=== PATIENT | female | born 1960 | race Caucasian/White ===

== ENCOUNTER 2019-11-14 10:20 | Outpatient (CLI) | payer OTHER, SELFPAY ==
--- NOTE | 2019-11-14 10:44 | MM_ITS ---
WS: [id number] BILATERAL DIGITAL SCREENING MAMMOGRAPHY WITH CAD CLINICAL INFORMATION: SCREENING HISTORY: Screening mammogram. No current complaints. COMPARISON: TECHNIQUE: Bilateral CC and MLO views. FINDINGS: Scattered fibroglandular densities bilaterally. A few tiny stable calcifications left breast. No susp icious focal mass, asymmetry, calcifications, or architectural distortion. No evidence of malignancy. MM/[place] [id number] IMPRESSION: BI-RADS: 2-Benign FOLLOW UP: 1 Year Follow-up Recommend return to annual screening mammography.
== END 2019-11-14 10:21 | disposition home or self-care (01) ==
LOC: RADSHAW 10:24
PROVIDERS: Family Provider Internal Medicine; PCP Family Medicine; Visit Provider Family Medicine
DX: Z12.31 Encounter for screening mammogram for malignant neoplasm of breast (principal)
CPT/HCPCS: 77067

== ENCOUNTER → 2023-01-01 10:41 | Outpatient (BNVA) | payer OTHER, SELFPAY | PROVIDERS: Family Provider Internal Medicine; PCP Family Medicine; Visit Provider Student in an Organized Health Care Education/Training Program | DX: M70.61 Trochanteric bursitis, right hip (principal) | CPT/HCPCS: 20610; 73502; 99203 ==

== ENCOUNTER → 2023-01-19 10:01 | Outpatient (BNVA) | payer OTHER, SELFPAY | PROVIDERS: Family Provider Internal Medicine; PCP Family Medicine; Visit Provider Physician Assistant | DX: M43.17 Spondylolisthesis, lumbosacral region (principal); M48.062 Spinal stenosis, lumbar region with neurogenic claudication; R20.2 Paresthesia of skin | CPT/HCPCS: 72110; 99203 ==

== ENCOUNTER → 2023-01-27 09:34 | Outpatient (BNVA) | payer MEDICARE, OTHER, SELFPAY | PROVIDERS: Family Provider Internal Medicine; PCP Family Medicine; Visit Provider Family Medicine | DX: Z01.818 Encounter for other preprocedural examination (principal); E11.9 Type 2 diabetes mellitus without complications | CPT/HCPCS: 80048; 83036; 85025 ==

== ENCOUNTER 2023-01-29 13:09 | Outpatient (CLI) | payer OTHER, SELFPAY ==
--- NOTE | 2023-01-29 13:30 | USCV_ITS ---
Rula Delong Age: 62 Gender: F : 1960 Exam Date: 01/29/2023 13:23 Ordering Phys: Lena Anthony MD ([email or web address]) Technologist: PAKO Exam Location: [facility] Indication: CHF BP: 128 / 72 HR: 69 Rhythm: Sinus Technical Quality: Adequate MEASUREMENTS (Male / Female) Normal Values 2D ECHO LV Diastolic Diameter PLAX 3.6 cm 4.2 - 5.9 / 3.9 - 5.3 cm LV Systolic Diameter PLAX 2.4 cm LV Chamber Size 4.5 cm IVS Diastolic Thickness 1.1 cm 0.6 - 1.0 / 0.6 - 0.9 cm IVS Systolic Thickness 1.1 cm LVPW Diastolic Thickness 1.2 cm 0.6 - 1.0 / 0.6 - 0.9 cm LVPW Systolic Thickness 1.3 cm RV Chamber Size 3.1 cm LVOT Diameter 2.0 cm LV Ejection Fraction 2D Teich 62.9 % LV Ejection Fraction MOD 2C 47.2 % LV Ejection Fraction 2C AL 46.1 % LA Diameter 3.7 cm LA Width 3.3 cm LA Height 3.5 cm RA Width 3.4 cm RA Height 3.8 cm Aorta at Sinotubular Diameter 2.6 cm M-MODE Aortic Annulus Diameter 3.0 cm LA Ao Ratio MM 1.3 MV E Point Septal Separation 0.8 cm DOPPLER AV Peak Velocity 173.0 cm/s LVOT Peak Velocity 121.0 cm/s AV Area Cont Eq vti 2.1 cm squared AV Area Cont Eq pk 2.2 cm squared MV Peak Velocity 167.0 cm/s MV Area PHT 2.0 cm squared Mitral E to A Ratio 0.9 MV E' Velocity 66.0 cm/s Mitral E to MV E' Ratio 21.1 Mitral E to LV E' Lateral Ratio 24.8 Mitral E to LV E' Septal Ratio 18.4 TR Peak Velocity 199.2 cm/s TR Peak Gradient 15.9 mmHg TR Mean Velocity 155.1 cm/s TR Mean Gradient 10.3 mmHg TR Velocity Time Integral 50.4 cm TV Peak E Velocity 41.0 cm/s Right Atrial Pressure 5.0 mmHg Pulmonary Artery Systolic Pressu 20.9 mmHg RV Acceleration Time 0.2 s RV Ejection Time 0.4 s RV AcT/ET 0.4 FINDINGS Left Ventricle Normal left ventricular size and systolic function, EF 55 %. Mild left ventricular hypertrophy. Grade I/IV diastolic dysfunction (abnormal relaxation filling pattern), normal to mildly elevated filling pressures. Right Ventricle The right ventricle is normal in size and function. Right Atrium The right atrium is normal in size. Left Atrium Mildly increased left atrial size. Mitral Valve Thickened mitral valve. Moderate mitral annular calcification. Mild mitral valve regurgitation. Aortic Valve Thickened aortic valve. Tricuspid Valve Trace tricuspid valve regurgitation. Pulmonic Valve Pulmonic valve not well visualized. Pericardium Normal pericardium without effusion. Aorta Normal ascending aorta dimension. IVC Normal inferior vena cava. CONCLUSIONS Normal left ventricular size and systolic function, EF 55 %. Mild left ventricular hypertrophy. Grade I/IV diastolic dysfunction (abnormal relaxation filling pattern), normal to mildly elevated filling pressures. Mildly increased left atrial size. Thickened mitral valve. Moderate mitral annular calcification. Mild mitral valve regurgitation. Thickened aortic valve. Trace tricuspid valve regurgitation. Estimated pulmonary artery peak systolic pressure 29 mmHg There is no pericardial effusion. There are no intracardiac masses. No similar previous studies are available for comparison Dr Lena Anthony MD FAC (Electronically Signed) Final Date: 05 Feb 2023 07:20 S
== END 2023-01-29 13:10 | disposition home or self-care (01) ==
LOC: RAD 13:12
PROVIDERS: PCP Internal Medicine; Visit Provider Internal Medicine Cardiovascular Disease
DX: I50.9 Heart failure, unspecified (principal); R06.09 Other forms of dyspnea; I05.9 Rheumatic mitral valve disease, unspecified; I35.8 Other nonrheumatic aortic valve disorders
CPT/HCPCS: 93306; 99205

== ENCOUNTER 2023-02-05 09:54 | Outpatient (CLI) | payer OTHER, SELFPAY ==
--- NOTE | 2023-02-05 | ECG_ITS ---
[facility] Test Date: 2023-02-05 Pat Name: Rula Delong Department: Room: Gender: Female Spring Inspector: : 1960 Requested By: Lena Anthony Order Number: [id number] Loyd MD: Lena Anthony M.D. Interpretive Statements NAME OF STUDY: LEXISCAN SESTAMIBI STRESS TEST INDICATION: CHF, PROCEDURE: At the baseline, the EKG revealed normal sinus rhythm with poor R wave progression. Nonspecific ST changes. The baseline heart was 64 bpm with a blood pressue of 154/73 mm of Hg Lexiscan was infused over a period of 20 seconds. A total of 0.4 milligrams of Lexiscan was infused. The stress phase was continued for a total of 5 minutes. Heart rate at the end of the stress phase was 72 bpm with a blood pressure 129/63 mm of Hg. The EKG at the peak infusion revealed no significant changes. Sestamibi was injected 20 seconds after the Lexiscan infusion. Heart rate at the end of the recovery phase was 73 bpm with a blood pressure of 131/66 mm of Hg. CONCLUSION: 1. No significant EKG changes with the LexiScan infusion 2. No LexiScan induced chest pain or cardiac arrhythmia 3. Normal blood pressure and heart rate response 4. Sestamibi/sestamibi perfusion scan pending; see separate report. Electronically Signed On 02-05-2023 20:24:44 CDT by Lena Anthony M.D. [id number]
[2023-02-05 10:09] VITALS: BMI 37.8
--- NOTE | 2023-02-05 10:11 | NMCV_ITS ---
NM camilo perf SPECT r/s* [id number] Rula Delong Age: 62 Gender: F : 1960 Exam Date: 02/05/2023 10:41 Ordering Phys: Lena Anthony MD ([email or web address]) Technologist: MANDEEP Holt Exam Location: [facility] Indications: Chest Pain STRESS TEST [facility] IMAGE PROTOCOL Rest/Stress 1 Lexiscan Day Radiopharmaceutical Dose (mCi) Administration Site Administered by Rest: Tc-99m 11.0 IV Hemal Phillips, ASSEMBLY OPERATOR Sestamibi Stress:Tc-99m 33.0 IV Hemal Phillips, ASSEMBLY OPERATOR Sestamibi Rest: 05-Feb-2023 60 Discovery 630 Stress: 05-Feb-2023 30 Discovery 630 0.4mg Lexiscan. Images obtained in supine and prone position. SPECT RESULTS Technical Quality: Excellent Raw Data Analysis: Normal, Breast attenuation Image Corrections: No attenuation or motion correction applied Summed Stress Score: 0 Summed Rest Score: 1 Summed Difference Score: 0 PERFUSION FINDINGS Fairly uniform myocardial tracer uptake with no significant perfusion normalities FUNCTIONAL RESULTS (calculated via Gated SPECT) Stress Image LV EF (%): 69 Stress EDV (mL):97 TID: 0.9 Stress ESV (mL):30 FUNCTIONAL FINDINGS: Segmental wall motion analysis revealing no gross wall motion abnormalities IMPRESSIONS 1. Unremarkable Myocardial perfusion imaging. 2. Normal LV ejection fraction of 69%. 3. LV wall motion analysis revealing no gross wall motion abnormalities. 4. Normal LV volume Low probability for coronary ischemia, based on the above findings. No similar previous studies are available for comparison Dr Lena Anthony MD FACC (Electronically Signed) Final Date: 05 Feb 2023 13:54 S
[2023-02-05] MEDS: regadenoson 0.4 Mg/5 ml Syringe IVP (11:30)
[2023-02-05 13:06] VITALS: BP 131/66; PULSE 74
== END 2023-02-05 09:55 | disposition home or self-care (01) ==
LOC: CDL 09:55
PROVIDERS: PCP Internal Medicine; Visit Provider Internal Medicine Cardiovascular Disease
DX: R07.9 Chest pain, unspecified (principal)
CPT/HCPCS: 36415; 78452; 93017; 96374; A9500; J2785

== ENCOUNTER 2023-02-17 10:20 | Inpatient (IN) | payer OTHER, SELFPAY ==
[2023-02-10 10:12] VITALS: BMI 37.8
[2023-02-10 10:51] LABS: Anion Gap 13.8 (5-19); Blood Urea Nitrogen 40 mg/dL (8-23); Calcium 8.8 mg/dL (8.5-10.5); Carbon Dioxide 27 mmol/L (22-29); Chloride 105 mmol/L (98-107); Glomerular Filtration Rate 55.6 mL/min (90-130); Glucose 206 mg/dL (65-115); Osmolality Calculated 308 mOsm/kg (285-295); Potassium 4.8 mmol/L (3.5-5.1); Sodium 141 mmol/L (136-145)
[2023-02-10 10:53] LABS: Creatinine Clr Calc Pharmacy 64.7573
--- NOTE | 2023-02-10 15:19 | ANES.PREANE2 ---
Pre-Anesthetic Assessment Height/Weight: Height 1.57 m Weight 93.894 kg Operation Date: 02/17/23 07:00 Proposed Procedures p Spondylolisthesis at L5-S1 level : 29178,77173,26438,19404,M43.17(Not Applicable) - Vidal Alvarado DO Familial anesthetic complications: none Was Beta Red taken within 24 hours: N/A Was Clonidine taken within 24 hours: N/A Social No alcohol and No tobacco Exam alert, oriented x 3, clear to auscultation bilaterally and regular rate & rhythm Airway Submandibular: within normal limits Cervical ROM: within normal limits Mallampati: Class II Dentition: false Pulmonary Sleep Apnea CV/HEM Arrythmia and Hypertension Metabolic Diabetes Mellitus, Hyperlipidemia and Morbid Obesity Musc/skel Lower Back Pain and Osteoarthritis/DJD Neuropsych Anxiety, Cerebrovascular Accident and Depression Anesthetic Plan ASA status: 3 Anesthesia: General Medications/Allergies Home Medications Medication Instructions Recorded Confirmed Last Taken Type albuterol 90 mcg/actuation aerosol 90 mcg inhalation QID PRN 01/07/23 02/10/23 02/10/23 History inhaler Shortness Of Breath amlodipine 10 mg tablet 10 mg PO DAILY 01/07/23 02/10/23 02/10/23 History aspirin 81 mg tablet,delayed 81 mg PO DAILY 01/07/23 02/10/23 02/10/23 History release (Adult Low Dose Aspirin) bupropion HCl 150 mg 24 hr tablet, 150 mg PO QAM 01/07/23 02/10/23 02/10/23 History extended release capsaicin 0.075 % topical cream 1 applic topical QPM 01/07/23 02/10/23 02/10/23 History cholecalciferol (vitamin D3) 25 25 mcg PO DAILY 01/07/23 02/10/23 02/10/23 History mcg (1,000 unit) capsule cyanocobalamin (vitamin B-12) 1,000 mcg PO DAILY 01/07/23 02/10/23 02/10/23 History 1,000 mcg capsule furosemide 20 mg tablet 20 mg PO DAILY 01/07/23 02/10/23 02/10/23 History hydrochlorothiazide 25 mg tablet 25 mg PO DAILY 01/07/23 02/10/23 02/10/23 History meloxicam 15 mg tablet 15 mg PO DAILY 01/07/23 02/10/2323 History pregabalin 75 mg capsule 75 mg PO BID 01/07/23 02/10/23 02/10/23 History atenolol 100 mg tablet 100 mg PO DAILY 01/27/23 02/10/23 02/10/23 History insulin regular hum U-500 conc 500 125 unit SUBCUT TID 01/27/23 02/10/23 02/10/23 History unit/mL subcutaneous soln (Humulin R U-500 (Concentrated) Insulin) lisinopril 40 mg tablet 40 mg PO DAILY 01/27/23 02/10/23 02/10/23 History rosuvastatin 40 mg tablet 20 mg PO DAILY 01/27/23 02/10/23 02/10/23 History semaglutide 0.25 mg or 0.5 mg (2 0.25 mg SUBCUT DIRECTED 01/27/23 02/10/23 02/10/23 History mg/3 mL) subcutaneous pen injector (Ozempic) trazodone 50 mg tablet 25 mg PO QPM 01/27/23 02/10/23 02/10/23 History Allergies Allergy/AdvReac Type Severity Reaction Status Date / Time cephalexin [From Keflex] Allergy Unknown Unknown Verified 02/10/23 10:04 metformin Allergy Unknown Unknown Verified 02/10/23 10:04 [facility] Anesthesia Medical History CAD (coronary artery disease) CHF (congestive heart failure) Chronic low back pain CVA (cerebral vascular accident) Diabetes Multinodular goiter Paroxysmal supraventricular tachycardia Sleep apnea Venous insufficiency of right lower extremity Data Anesthesia 02/10/23 10:25 BMP 02/10/23 10:25 Sodium 141 Potassium 4.8 Chloride 105 Carbon Dioxide 27 BUN 40 H Creatinine 1.0 H Glucose 206 H Calcium 8.8 Cardiac Studies: Echocardiogram 01/29/23 Sestamibi Stress Test (Cardiology) 02/05/23
[2023-02-17] VITALS (18 sets, daily range): BP systolic 96–148; BP diastolic 54–83; PULSE 72–97; RESP 15–116; TEMP 36.4–37.1; O2SAT 90–99
--- NOTE | 2023-02-17 | XR_ITS ---
WS: [id number] Exam: XR lumbar spine 2-3V* [id number] Date/Time of Exam: 02/17/2023 12:00 AM Reason For Exam: L5-S1 instrumented fusion Intraoperative AP and lateral images of the lower lumbar spine depict posterior fusion with the rey a nd screw fixation at the L5-S1 level. A disc spacer is noted. The fusion appears to be in good alignm ent. XR/XR lumbar spine 2-3V* 46000 IMPRESSION: 1. Stable-appearing posterior fusion at L5-S1 as detailed above.
[2023-02-17] MEDS: sodium chloride 0.9% 1,000 ML 30 ML IV (06:25)
--- NOTE | 2023-02-17 06:31 | P.ANESUD_ITS ---
Pre-Anesthetic Update Pre-Anesthetic Assessment: Date of Surgery/Procedure: 02/17/23 Preop [place] gnosis: Grade 1 spinal listhesis L5-S1, lumbar stenosis Proposed Procedure: Operation Date: 02/17/23 07:00 Proposed Procedures p Spondylolisthesis at L5-S1 level : 60437,84287,96548,46502,M43.17(Not Applicable) - Vidal Alvarado, DO Any changes to Pre-Anesthetic Assessment?: No Last Intake: Intake Last Liquid Date 02/17/23 Last Liquid Time 05:00 Last Solid Date 02/16/23 Last Solid Time 20:00 Vitals: Temperature 97.6 F 02/17/23 06:10 Temperature Source Temporal Artery S can 02/17/23 06:10 Pulse Rate 72 02/17/23 06:10 Respiratory Rate 16 02/17/23 06:10 Blood Pressure 127/75 02/17/23 06:10 Blood Pressure Noreen n 92 02/17/23 06:10 Pulse Oximetry 97 02/17/23 06:10 Oxygen Delivery Me thod Room Air 02/17/23 06:10 Exam: Pre-Anes Outpt Exam: alert, oriented x 3, clear to auscultation bi laterally and regular rate & rhythm Cardiac Studies: Echocardiogram 01/29/23 Sestamibi Stress Test (Cardiology) 02/05
--- NOTE | 2023-02-17 06:39 | W.PM.OPSUD ---
Surgery/Procedure H&P Update DATE OF PROCEDURE: February 17, 2023 DATE H&P PERFORMED: 01/21/23 H&P UPDATE INFORMATION: I have reviewed H&P completed within last 30 days, I have examined patient prior to procedure and No changes to prior documentation PREOP DIAGNOSIS: Grade 1 spinal listhesis L5-S1, lumbar stenosis PLANNED PROCEDURE: Operation Date: 02/17/23 07:00 Proposed Procedures p Spondylolisthesis at L5-S1 level : 44342,78069,11462,07791,M43.17(Not Applicable) - Vidal Alvarado DO
[2023-02-17 06:56] LABS: Anion Gap 15.5 (5-19); Blood Urea Nitrogen 43 mg/dL (8-23); Calcium 9.4 mg/dL (8.5-10.5); Carbon Dioxide 24 mmol/L (22-29); Chloride 107 mmol/L (98-107); Glomerular Filtration Rate 55.6 mL/min (90-130); Glucose 105 mg/dL (65-115); Osmolality Calculated 305 mOsm/kg (285-295); Potassium 4.5 mmol/L (3.5-5.1); Sodium 142 mmol/L (136-145)
[2023-02-17 07:03] LABS: Creatinine Clr Calc Pharmacy 64.7573
[2023-02-17] MEDS: clindamycin 900 MG/50 ML PREMIX 100 MG IV ×3 (07:05→22:16)
[2023-02-17] MEDS: vancomycin 1,000 MG SDV 1000 MG XX (08:02)
[2023-02-17] MEDS: heparin, porcine 1,000 unit/mL INJ 10 mL 10000 UNIT IRRIGATION (08:02)
[2023-02-17] MEDS: lidocaine-epi 1% 20 mL INJ INJECTION (08:02)
--- NOTE | 2023-02-17 10:01 | P.OP_ITS ---
Operative Report Date of procedure: February 17, 2023 Pre-op diagnosis: Preop Diagnosis Grade 1 spinal listhesis L5-S1, lumbar stenosis with neurogenic claudication Post-op diagnosis: same Procedure done: 1. L5/S1 Interbody fusion with posterolateral fusion 2. Instrumentation L5/S1 3. Cage at L5/S1 4. Laminectomy with facetectomies L5/S1 5. use of autograft from same incision 6. allograft 7. Bone marrow aspirate from right iliac crest 8. Use of computer navigation / stereotactic for spine Surgeon: Vidal Alvarado Wool Sampler: Renato Ruggiero Wool Sampler: The neurosurgical nurse, Renato Ruggiero, PAC was needed for his expertise under the microscope. He was important and necessary throughout the procedure to complete in a safe and timely manner. He assisted with patient positioning prepping and draping tissue retraction suctioning of the operative field protection of the dural sac and tissue closure Estimated blood loss (mL): 250 Procedure: 1. L5/S1 Interbody fusion with posterolateral fusion 2. Instrumentation L5/S1 3. Cage at L5/S1 4. Laminectomy with facetectomies L5/S1 5. use of autograft from same incision 6. allograft 7. Bone marrow aspirate from right iliac crest 8. Use of computer navigation / stereotactic for spine Patient is brought to the operative suite. After undergoing anesthesia, the patient had neuro monitoring attached. Patient was then placed in the prone po sition on the Wilmer table. All areas of impingement were well-padded. Patient was then prepped and draped in the normal sterile fashion. Skin incision was then made over the L L5-S1 space. Subperiosteal dissection was made out to the transverse processes of L5 and Sacral ala. Next attention was brought to getting bone marrow aspirate. The [employer] bone marrow aspirate kit was used to aspirate bone marrow aspirate from the right iliac crest. This was done by using the sharp probe to open up the bone. Aspiration was performed and then the blunt probe was then used to dissect down to through the bone tunnel. An aspirating well drawn back a millimeter approximately 20 cc of bone marrow aspirate was used. Admixed with the allograft and autograft bone that will be used. Next attention was brought to placing the fiducial for the computer navigation. This was done by pointy pins into the right iliac crest. These pins were then attached to a fiducial. C-arm was brought in and spun around the patient. Information from serum was then low in the computer in order to facilitate using computer navigation to place pedicle screws. The technique for placing the pedicle screws was to use a drill followed by the gearshift probe linked to computer navigation. Followed by the ball probe to feel the superior inferior medial lateral gruber of the pedicles. Then placement of the screws with computer navigation. Was done at each pedicle. Screws were placed at L5 bilaterally and S1 . Next attention was brought to performing the laminectomy ofL5. This was done using the high-speed bur Kerrisons and curettes. Once the lamina was removed and then attention was brought to performing a partial facetectomy on the contralateral side. This was done again using the high-speed bur curettes and Kerrisons. The ligamentum flavum was taken down bilaterally from L5 to S1. Attention was then brought to the facet on the ipsilateral side. The facet was taken down. The S1 nerve was decompressed as it passed around the S1 pedicle. The laminectomy was done for purposes of decompressing the nerve as well as placement of the cage. The L5 nerve was identified as it traversed through the L5/S1 foramen. The thecal sac was identified and retracted. The L5/S1 disc base was identified. Using a knife the disc base was opened. And then sequential chema were placed. The first shaver was a 6 and the last shaver was a 10. Using a pituitary and down going curette the endplates were scraped and disc material was removed from the space. Once adequate decompression of the disc base was felt to be had. Osteoamp sponge was packed into the anterior aspect of the disc base. Then a size 11 cage from Al was placed after packing osteoamp into the cage. While placing the cage the thecal sac and S1 nerve was protected. C arm was used to ensure that the cages placed in the appropriate position. Attention was then brought to attaching the rods to the screws placed in the L5 bilaterally and S1 bilaterally. Caps were torqued into position. Locking the construct in place. Wound was copiously irrigated and then attention was brought to decorticating the facets and transverse processes laterally. Bone that was taken down from the lamina was used along with osteoamp fibers and sponges were packed into the lateral gutters along the facet joints. This was done bi laterally. Wound was then closed in a layered fashion starting with the thoracolumbar fascia. 0-vicryl was used the sub cutaneous tissue was closed with 2-0 vicryl and skin with 4-0 monocryl. Glue was then used to seal the skin and a steril dressing was applied. Patient was then placed in the supine position. The endotracheal tube was removed and patient was transferred to the PACU in stable condition.
[2023-02-17] MEDS: lactated ringers 1,000 ML 90 ML IV ×2 (11:06→22:16)
[2023-02-17] MEDS: ketorolac 30 mg/mL INJ IVP (11:07)
--- NOTE | 2023-02-17 12:47 | ANE.PACU2 ---
Inpatient post-anesthesia follow up: Airway intact: Yes Vital signs: Temperature 98.2 F Pulse Rate 88 Respiratory Rate 16 Blood Pressure 120/70 Pulse Oximetry 97 Oxygen Delivery Me thod Nasal Cannula Oxygen Flow Rate 2 Fraction of Inspir ed Oxygen Hydration adequate: Yes Nausea and vomiting: No Pain level: 1 Mental status: Baseline
--- NOTE | 2023-02-17 13:06 | PC.NURSE ---
BG 300 PER DEXCOM
[2023-02-17] MEDS: insulin lispro 100 unit/1 mL SUBCUT ×3 (13:11→20:14)
[2023-02-17] MEDS: HYDROcodone-acetaminophen 5-325 mg Tablet PO ×3 (15:23→23:21)
--- NOTE | 2023-02-17 17:53 | PC.NURSE ---
BG 254 PER DEXCOM
[2023-02-17] MEDS: docusate sodium 100 mg Capsule PO (17:57)
[2023-02-17] MEDS: pregabalin 75 mg Capsule PO (17:57)
[2023-02-17] MEDS: ondansetron 2 mg/ML SDV 2 mL 4 MG IVP (18:01)
--- NOTE | 2023-02-17 18:15 | PC.NURSE ---
SHIFT SUMMARY PATIENT IS CURRENTLY RESTING IN BED. WORKED WITH PHYSICAL THERAPY. COMPLAINING OF DIFFICULTY SWALLOWING. THIS NURSE ASSESSED PATIENTS THROAT AND IT DOESN'T APPEAR TO BE SWOLLEN. I ENCOURAGED PATIENT TO INCREASE PO INTAKE. PATIENT HAS SWALLOWED PILLS WITHOUT DIFFICULTY, BUT ISN'T TAKING IN MUCH OTHERWISE. SURGICAL DRESSING HAS MINIMAL DRAINAGE. HEMOVAC OUTPUT 150ML. EXCELLENT URINE OUTPUT. PAIN WELL CONTROLLED.
--- NOTE | 2023-02-17 20:11 | PC.NURSE ---
Blood glucose currently 222 on Dexcom.
[2023-02-17 20:47] LABS: Glucose Point of Care 193 mg/dL (70-110)
[2023-02-18] MEDS: HYDROcodone-acetaminophen 5-325 mg Tablet PO ×2 (03:51→05:00)
[2023-02-18 04:00] VITALS: BP 105/67; PULSE 85; RESP 17; TEMP 36.5; O2SAT 95
[2023-02-18] MEDS: ketorolac 30 mg/mL INJ IVP (05:00)
[2023-02-18] MEDS: buPROPion XL (24 HR) 150 mg Tablet PO (05:00)
--- NOTE | 2023-02-18 06:21 | PC.NURSE ---
Blood glucose currently 177 on Dexacom.
[2023-02-18] MEDS: clindamycin 900 MG/50 ML PREMIX 100 MG IV (06:22)
--- NOTE | 2023-02-18 06:54 | PM.PN ---
Subjective Subjective: POD 1 Patient up in the chair this morning complains of back pain reports leg pain has improved. Shortness of breath, chest pain, headaches. Vitals/I&O/Wt Last Vital Signs Temp 97.7 F 02/18/23 04:00 Pulse 85 02/18/23 04:00 Resp 17 02/18/23 04:00 BP 105/67 02/18/23 04:00 Pulse Ox 95 02/18/23 04:00 O2 Del Method Room Air 02/18/23 04:00 O2 Flow Rate 2 02/17/23 11:50 02/17/23 02/17/23 02/18/23 14:59 22:59 06:59 Intake Total 150 / 150 1100 / 1250 1050 / 2300 Output Total 900 / 900 860 / 1760 1650 / 3410 Balance -750 / -750 240 / -510 -600 / -1110 Physical Exam Narrative: Patient presents alert and oriented x3 with a good general appearance normal mood and affect. Normal coordination normal stability. Mild tenderness around the incisional site with the incision appear to have slight bloody discharge around the drain. No signs of erythema or drainage. No signs of infection. Patient denies any fevers or chills. 4/5 motor strength both lower extremities with negative straight leg raise bilaterally. Calves are supple no medial thigh tenderness. Pulses are 2+ at the dorsalis pedis and posterior tibial region. Good capillary refill throughout normal sensation light touch both lower extremities. Urinary Catheter Management: Diaz: Cath Placed During This Visit: yes Reason for Continuing Indwelling Catheter: Perioperative Use in Selected Surgeries Urinary Catheter Date of Insertion: 02/17/23 Urinary Catheter Time of Insertion: 07:28 Data 02/17/23 06:18 A&P Assessment and plan (1) Status post lumbar spinal fusion: We will discontinue the Diaz catheter and Hemovac drain. Apply new Silverlon dressing. Encourage incentive spirometry for pulmonary toilet and take the incentive spirometer at home. No bending lifting or twisting encourage mobilization with walker. We will see her back in the office in 1 week's time for a wound check. Attestations Medical Necessity Statement*: Home later this morning following physical therapy. Coding Level of Care Code Acute Code for Chg Fwd Diagnoses Status post lumbar spinal fusion Z98.1
[2023-02-18 08:00] VITALS: BP 103/68; PULSE 78; RESP 16; TEMP 36.4; O2SAT 98
[2023-02-18] MEDS: cholecalciferol (vitamin D3) 1,000 unit Tablet 1000 UNIT PO (08:07)
[2023-02-18] MEDS: atenolol 50 mg Tablet 100 MG PO (08:07)
[2023-02-18] MEDS: ondansetron 2 mg/ML SDV 2 mL 4 MG IVP (08:07)
[2023-02-18] MEDS: atorvastatin 40 mg Tablet 80 MG PO (08:08)
[2023-02-18] MEDS: amlodipine 10 mg Tablet PO (08:08)
[2023-02-18] MEDS: lisinopril 20 mg Tablet 40 MG PO (08:08)
[2023-02-18] MEDS: FUROsemide 20 mg Tablet PO (08:08)
[2023-02-18] MEDS: docusate sodium 100 mg Capsule PO (08:09)
[2023-02-18] MEDS: hydroCHLOROthiazide 25 mg Tablet PO (08:09)
[2023-02-18] MEDS: pregabalin 75 mg Capsule PO (08:09)
[2023-02-18] MEDS: cyanocobalamin 1,000 mcg Tablet 1000 MCG PO (08:09)
[2023-02-18] MEDS: aspirin 81 mg EC Tablet PO (08:09)
--- NOTE | 2023-02-18 08:13 | PC.NURSE ---
Patients blood sugar is 194 per Dexacom at 0813
[2023-02-18] MEDS: insulin lispro 100 unit/1 mL SUBCUT ×2 (08:14→12:10)
--- NOTE | 2023-02-18 09:08 | PC.NURSE ---
Removed Catheter at 0645. Patient tolerated well
--- NOTE | 2023-02-18 10:51 | PC.CHAP ---
Pastoral Care Encounter/Spiritual Assessment Type of Contact [] Declined roll or tape edge machine operator visit [] Patient/Family/Request visit [] Outpatient visit [] Follow-up visit [] Physician referral [] Code/Alert [x] Routine visit [] Staff referral [] Actively dying [] Patient sleeping [] Family support [] [] Out of room [] Palliative care [] [x] Receiving care in room [] Pre-surgical visit [] Trauma [] Long length of stay [] ICU visit [] Other: Relational/Emotional Strength [x] Patient feels connected with others/family/visitors/staff [] Distress [] Loneliness/isolation [] Abandonment Spirituality of Patient [x] Person of Sofi [] Attends Mandaeism of their Sofi [x] Believes in Prayer [] Reads Bible or Caodaism materials [] There are Spiritual issues to be addressed Convention Manager Interventions [x] Prayer [x] Active listening [x] Non-anxious presence [x] Spiritual/emotional support [] Crisis/trauma care [x] Spiritual counseling [] Bereavement support [] Provided bereavement packet [] Provided Bible/devotional materials [] Provided toy/stuffed animal, coloring book to patient or family member [] Provided Communion [] Anointing/[place] [] Salvation [x] Completed spiritual assessment [] Other: Impact on Illness or Injury [] Angry [] Fearful [] Anxious [] Often cries [] Exhaustion [] Unable to work [] Unable to attend buddhist [] Unable to walk/stand [] Unable to read [] Unable to drive [] Unable to eat/drink [] Unable to sleep [] Unable to be with family [] Patient intubated [] Other: Summary senior had back surgery feels good has a good attitude is going home Time spent with patient 10 mins
[2023-02-18 12:00] VITALS: BP 111/72; PULSE 89; RESP 18; TEMP 36.4; O2SAT 98
--- NOTE | 2023-02-18 12:04 | PC.NURSE ---
Patients blood sugar was 171 by dexacom at 1205
[2023-02-18 12:45] VITALS: BP 111/72; PULSE 89; RESP 18; TEMP 36.4; O2SAT 98
--- NOTE | 2023-02-20 13:33 | P.DS_ITS ---
Discharge Providers Date of Admission: 02/17/23 10:20 Date of Discharge: February 18, 2023 Attending Provider at Admission: Vidal Alvarado DO Attending Provider at Discharge: Vidal Alvarado DO Primary Care Provider: Ramesh Magana MD Diagnoses at Discharge Discharge Diagnosis (1) Status post lumbar spinal fusion: Status: Acute Reason for Visit Reason for Visit: Spondylolisthesis at L5-S1 level Physical Exam Urinary Catheter Management: Diaz: Cath Placed During This Visit: yes Reason for Continuing Indwelling Catheter: Perioperative Use in Selected Surgeries Urinary Catheter Date of Insertion: 02/17/23 Urinary Catheter Time of Insertion: 07:28 Discharge Data Studies Completed and Pending Completed Studies During Hospitalization Category Date Time Status XR lumbar spine 2-3V* [id number] Routine Exams 02/17/23 Completed Radiology Impressions Lumbar Spine X-Ray 02/17/23 00:00 IMPRESSION: 1. Stable-appearing posterior fusion at L5-S1 as detailed above. Laboratory Results Sodium 142 mmol/L (136-145) 02/17/23 06:18 Potassium 4.5 mmol/L (3.5-5.1) 02/17/23 06:18 Chloride 107 mmol/L (98-107) 02/17/23 06:18 Carbon Dioxide 24 mmol/L (22-29) 02/17/23 06:18 Anion Gap 15.5 (5-19) 02/17/23 06:18 BUN 43 mg/dL (8-23) H 02/17/23 06:18 Creatinine 1.0 mg/dL (0.5-0.9) H 02/17/23 06:18 GFR Calculation 55.6 mL/min (90-130) L 02/17/23 06:18 Glucose 105 mg/dL (65-115) 02/17/23 06:18 POC Glucose 193 mg/dL (70-110) H 02/17/23 20:30 Calculated Osmolality 305 mOsm/kg (285-295) H 02/17/23 06:18 Calcium 9.4 mg/dL (8.5-10.5) 02/17/23 06:18 Blood Type O Positive 02/17/23 06:18 Rho(D) Type Positive 02/17/23 06:18 Antibody Screen Negative 02/17/23 06:18 Vitals Last Vital Signs Temp 97.6 F 02/18/23 12:45 Pulse 89 02/18/23 12:45 Resp 18 02/18/23 12:45 BP 111/72 02/18/23 12:45 Pulse Ox 98 02/18/23 12:45 O2 Del Method Room Air 02/18/23 12:00 O2 Flow Rate 2 02/17/23 11:50 Discharge Plan Discharge Patient Disposition: Home Condition: Stable Prescriptions: New (DME) Intraoperative neuromonitoring See Rx Instructions .Route .MEDSUPPLY Qty: 1 0RF Rx Instructions: As directed (DME) Bone Growth Stimulator E0748 See Rx Instructions .Route .MEDSUPPLY Qty: 1 0RF Rx Instructions: As directed hydrocodone-acetaminophen 5-325 mg Tablet 1 - 2 tab PO Q4H PRN (Reason: Post operative pain) Qty: 40 0RF Continued albuterol 90 mcg/actuation aerosol 90 mcg inhalation QID PRN (Reason: Shortness Of Breath) amlodipine 10 mg tablet 10 mg PO DAILY bupropion HCl 150 mg tablet extended release 24 hr 150 mg PO QAM capsaicin 0.075 % cream 1 applic topical QPM Rx Instructions: do not wash area for at least 30 min after application furosemide 20 mg tablet 20 mg PO DAILY hydrochlorothiazide 25 mg tablet 25 mg PO DAILY pregabalin 75 mg capsule 75 mg PO BID aspirin [Adult Low Dose Aspirin] 81 mg tablet,delayed release (DR/EC) 81 mg PO DAILY cholecalciferol (vitamin D3) 25 mcg (1,000 unit) capsule 25 mcg PO DAILY cyanocobalamin (vitamin B-12) 1,000 mcg capsule 1,000 mcg PO DAILY atenolol 100 mg tablet 100 mg PO DAILY lisinopril 40 mg tablet 40 mg PO DAILY rosuvastatin 40 mg tablet 20 mg PO DAILY Humulin R U-500 (Conc) Insulin 500 unit/mL solution 125 unit SUBCUT TID trazodone 50 mg tablet 25 mg PO QPM PRN (Reason: Sleep) Ozempic 0.25 mg or 0.5 mg (2 mg/3 mL) pen injector 0.25 mg SUBCUT DIRECTED Rx Instructions: weekly on wednesday Held meloxicam 15 mg tablet 15 mg PO DAILY Hold Instructions: Resume on 03/25/23. Discharge Orders: Discharge Order (Routine); Ordered 02/18/23 Ordered By: Renato Ruggiero Referrals: Vidal Alvarado DO [Physician] - 02/25/23 10:30 am Ramesh Magana MD [Primary Care Provider] - (Call to make a follow up appointment within 7-10 days) Discharge Diet: Advance as tolerated Discharge Activity: Limit activity as instructed Patient Instructions: Hydrocodone/Acetaminophen (By mouth), Spondylolisthesis (ED), Opioid Safety Activity Restrictions/Additional Instructions: Thank you for choosing [facility] for your care! The following is a list of instructions, from your provider, to follow upon your discharge to ensure you have the optimal recovery from your recent injury or surgery. Follow-up care is a candelario part of your treatment and safety. Be sure to make and go to all appointments and call your doctor if you are having problems. If you do not already have a follow-up appointment made, call Dr. Alvarado's] office in the next 1-3 days to make follow up appointment for 1 weeks at [phone]. It is also a good idea to know your test results and keep a list of the medicines you take. Medications will be prescribed for you at your provider's discretion. These medications are to be used as instructed; if they are taken more often that p rescribed they will not be refilled early and in most cases will not be refilled at all. > When a refill is needed, you should contact [facility] 2-3 business days before your prescription runs out. Medications will NOT be refilled by international trade manager providers after hours! > Many pain medications contain Tylenol (Acetaminophen). Do not consume more than 4,000 mg of Tylenol per day in total with any combination of medications. > Pain medications can cause constipation. Please use an over the counter stool softener as directed, while taking pain medications. Consult your local pharmacist with questions or recommendations on stool softeners. If constipation persists, contact our office or your primary care provider. > While under our care, you are not to receive pain medications or other controlled substances from any other provider unless our office is notified and approves. Any attempts to do so will result in refusal to prescribe any further pain medications and possible dismissal from our practice. ? Walking is essential for the healing process after surgery. We would like you to slowly advance your walking. This should be done on r elatively flat clear ground (inside or out) or can be done on a treadmill. Remember this goal does not have to happen all at once, slowly increase your distance and duration. This can be broken into more more than one walk per day as tolerated. Patients who walk as directed after surgery rarely require Physical Therapy. In the unlikely event this issue arises your provider will direct hospital staff to make the appropriate arrangements. ? No lifting over 5 pounds {a gallon of milk) or bending/twisting until further notice. Each of these activities places an unnecessary amount of stress onto the body and can impede the delicate healing process. > Instead of bending at the waist, keep your back straight and bend at the knees. > Instead of twisting your torso, keep your back straight and turn your entire body with your feet. ? You may sleep in any position which makes you comfortable. Many patients find comfort sleeping in a reclining chair. It is not abnormal to have difficulty sleeping for the first several weeks following your surgery. We recommend trying Benadry! or Tylenol PM as directed to help with your sleeping difficulties. Both medications are over the counter and available without prescription. ? NO SMOKING!!! Smoking dramatically increases the probability of developing postoperative wound infections. ? Common complaints after lumbar and/or thoracic spine surgery include, but are not limited to: numbness and/or tingling in the legs, pain around the incision and surrounding tissues, muscle spasms, or stiffness of the middle to low back. Contact our office if these symptoms persist or if an acute change occurs. ? No driving for the first 3-5days, and not while taking narcotics until seen at your follow-up appointment and cleared. There are no restrictions for riding on short trips, however if you take a longer trip, arrangements should be made to make regular stops to get out of the vehicle and stretch . ? Swelling is an unfortunate event that will take place with any surgery and is the primary source of your postoperative discomfort. While walking and regular approved activities helps control inflammation, there are additional steps you can take to minimize swelling. > Place ice over the surgical site and surrounding tissue for twenty minutes, followed by applying a low/medium heat (heating pad) for an additional twenty minutes every 1-2 hours as needed for painrelief. > You may use of over the counter anti-inflammatory medications (Ibuprofen, Motrin, Aleve, Advil, etc) as directed on the package label. These types of medicines will significantly reduce the amount of discomfort you experience after surgery from swelling. It should be noted that if you have and allergy to any of these medications, or a history of ulcers or kidney disease you should consult you primary care provider prior to starting these medications. Discharge Attestations Time Spent in Discharge Care*: less than 30 min Quality Metrics Clinical Quality Measures [ No reported AMI, CVA or VTE this stay] Coding Level of Care Code Acute Code for Chg Fwd Diagnoses Status post lumbar spinal fusion Z98.1
== END 2023-02-18 12:45 | disposition home or self-care (01) | DRG 455 ==
LOC: MEDSURG 10:22
PROVIDERS: Anesthesiology; Admitting Provider Orthopaedic Surgery; PCP Internal Medicine; Visit Provider Orthopaedic Surgery
PROC: 0SG30AJ Fusion of Lumbosacral Joint with Interbody Fusion Device, Posterior Approach, Anterior Column, Open Approach (ICD-10-PCS; CPT 22612; principal; 2023-02-17 07:00)
DX: M43.17 Spondylolisthesis, lumbosacral region (principal); Z79.51 Long term (current) use of inhaled steroids; Z79.82 Long term (current) use of aspirin; Z79.4 Long term (current) use of insulin; Z79.891 Long term (current) use of opiate analgesic; G47.30 Sleep apnea, unspecified; I50.9 Heart failure, unspecified; I11.0 Hypertensive heart disease with heart failure; E11.51 Type 2 diabetes mellitus with diabetic peripheral angiopathy without gangrene; E78.5 Hyperlipidemia, unspecified; E66.01 Morbid (severe) obesity due to excess calories; Z68.37 Body mass index [BMI] 37.0-37.9, adult; F41.9 Anxiety disorder, unspecified; Z86.73 Personal history of transient ischemic attack (TIA), and cerebral infarction without residual deficits; F32.A Depression, unspecified; I25.10 Atherosclerotic heart disease of native coronary artery without angina pectoris; G89.29 Other chronic pain
CPT/HCPCS: 36415; 36416; 51702; 72100; 76000; 80048; 82962; 86850; 86900; 96372; 97116; 97161; C1713; J0330; J1100; J1644; J1815; J1885; J2250; J2405; J2704; J2710; J3010; J3370; J3490; J7030; J7120; P9045

== ENCOUNTER → 2023-02-25 09:47 | Outpatient (BNVA) | payer OTHER, SELFPAY | PROVIDERS: PCP Internal Medicine; Visit Provider Physician Assistant | DX: Z98.1 Arthrodesis status (principal) | CPT/HCPCS: 99024 ==

== ENCOUNTER → 2023-03-04 08:40 | Outpatient (BNVA) | payer OTHER, SELFPAY | PROVIDERS: PCP Internal Medicine; Visit Provider Physician Assistant | DX: Z98.1 Arthrodesis status (principal) | CPT/HCPCS: 72100; 99024 ==

== ENCOUNTER → 2023-05-20 07:51 | Outpatient (BNVA) | payer OTHER, SELFPAY | PROVIDERS: PCP Internal Medicine; Visit Provider Physician Assistant | DX: Z47.89 Encounter for other orthopedic aftercare; R20.2 Paresthesia of skin; E11.9 Type 2 diabetes mellitus without complications; Z79.4 Long term (current) use of insulin | CPT/HCPCS: 72100 ==

== ENCOUNTER 2023-05-20 11:55 | Outpatient (CLI) | payer OTHER, SELFPAY | END 2023-05-20 11:56 | disposition home or self-care (01) | LOC: SPT 11:56 | PROVIDERS: PCP Internal Medicine; Visit Provider Physician Assistant | DX: Z46.89 Encounter for fitting and adjustment of other specified devices (principal) | CPT/HCPCS: 97760; 99213; L0637 ==

== ENCOUNTER → 2023-09-02 13:18 | Outpatient (BNVA) | payer OTHER, SELFPAY | PROVIDERS: PCP Internal Medicine; Visit Provider Nurse Practitioner Family | DX: I11.0 Hypertensive heart disease with heart failure (principal); I50.32 Chronic diastolic (congestive) heart failure; I47.19 Other supraventricular tachycardia; G47.30 Sleep apnea, unspecified | CPT/HCPCS: 99214 ==